=== PATIENT | male | born 1965 | race Caucasian/White ===

== ENCOUNTER 2023-03-18 06:32 | Emergency (ER) | payer OTHER, SELFPAY ==
[2023-03-18] VITALS (7 sets, daily range): BP systolic 100–119; BP diastolic 67–69; PULSE 73–98; RESP 18–24; TEMP 36.6; O2SAT 97–100
--- NOTE | ~2023-03-18 | XR_ITS ---
Portable chest x-ray Comparison: None Clinical History: Shortness of breath, CVA Findings: Lungs are clear, without focal consolidation or pleural effusion. Cardiomediastinal silho uette is unremarkable. Bones and soft tissues are unremarkable. Impression: Normal chest. Reviewed, dictated and finalized at [facility]. Impression: Normal chest.
--- NOTE | ~2023-03-18 | CT_ITS ---
Non-contrast Head CT History: Left hand numbness, vision changes Technique: Axial non-contrast imaging of the brain was performed. Dose reduction technique was used on this scan by utilizing automated exposure control and iterative reconstruction technique. The dose -length product (DLP) was 681.00 mGy-cm. Findings: There is no evidence of intracranial hemorrhage, mass lesion, or acute infarct. Brain par enchyma appears normal. The ventricles and subarachnoid spaces are normal in size. The calvarium ap pears normal. The visualized paranasal sinuses and mastoid air cells are clear. Impression: No significant abnormality seen. Reviewed, dictated and finalized at location . Impression: No significant abnormality seen.
--- NOTE | 2023-03-18 06:44 | ECG_ITS ---
Measurements Intervals [place] Rate: 78 P: 83 ND: 147 QRS: 85 QRSD: 96 T: 28 QT: 336 QTc: 385 Interpretive Statements SINUS RHYTHM POSSIBLE LEFT ATRIAL ENLARGEMENT BASELINE ARTIFACT- I, III BORDERLINE ECG NO PREVIOUS ECG AVAILABLE FOR COMPARISON Electronically Signed On 03-18-2023 7:36:24 CDT by Fercho Loza D.O.
--- NOTE | 2023-03-18 06:55 | PC.NURSE ---
Pt reports tingling to bilateral hands and feet for weeks . Last night he noticed his left hand went completely numb . States he came in this morning because his hand is still numb. When asked if he's had any SOB pt states I had COVID about a month ago and it still feels like I can't catch my breath . No s/s of respiratory distress. Skin warm and dry. Respiratory rate regular and non-labored. He denies chest pain. He denies any past medical history. Pt moves all extremities equally, ambulates with steady gait, speech is clear, pupils PEARRL.
[2023-03-18 06:58] LABS: Basophils Percent Auto 0.5 % (0.2-1.2); Eosinophils Percent Auto 0.6 % (0-4.4); Hematocrit 41.1 % (42.0-52.0); Hemoglobin 14.4 g/dL (14.0-18.0); Immature Granulocyte Absolute 0.02 K/mm3 (0.00-0.031); Immature Granulocyte Percent A 0.3 % (0-0.5); Lymphocytes Absolute Auto 0.79 K/mm3 (0.9-3.2); Lymphocytes Percent Auto 12.5 % (18.3-44.2); Mean Corpuscular Hemoglobin 32.7 pg (26-34); Mean Corpuscular Volume 93.2 fl (80-100); Mean Platelet Volume 9.7 fl (7.4-10.4); Monocytes Absolute Auto 0.8 K/mm3 (0.1-0.6); Monocytes Percent Auto 12.8 % (2.6-8.5); Neutrophils Absolute Auto 4.6 K/mm3 (1.3-6.7); Neutrophils Percent Auto 73.3 % (45.5-73.1); Platelet Count Result 216 k/mm3 (150-375); Red Blood Count 4.41 M/mm3 (4.6-6.20); Red Cell Distribution Width 13.1 % (11.5-14.5); White Blood Count 6.3 K/mm3 (4.5-10.0)
[2023-03-18 07:11] LABS: Alanine Aminotransferase 19 U/L (6-50); Albumin Level 4.3 g/dL (3.5-5.1); Alkaline Phosphatase 69 U/L (38-126); Anion Gap 7 mmol/L (8-16); Aspartate Amino Transferase 26 U/L (17-59); Bilirubin,Total 1.3 mg/dL (0.2-1.3); Blood Urea Nitrogen 13 mg/dL (9-20); Calcium 8.9 mg/dL (8.4-10.2); Carbon Dioxide 25 mmol/L (22-30); Chloride 105 mmol/L (98-107); Estimated CRCL calculation 86 ml/min; Estimated Glomerular Filt Rate > 60; Glucose 104 mg/dL (65-110); Potassium 3.9 mmol/L (3.4-5.0); Sodium 137 mmol/L (137-145)
[2023-03-18 07:21] LABS: Troponin I < 0.012 ng/mL (0.000-0.034)
--- NOTE | 2023-03-18 07:32 | PC.NURSE ---
Patient report received from VERNELL Alcazar. All questions answered and care of patient assumed.
[2023-03-18 07:44] LABS: INR 1.1; Prothrombin Time 14.2 Seconds (11.1-14.7)
[2023-03-18 07:45] LABS: Partial Thromboplastin Time 31.4 SECONDS (22.3-36.8)
--- NOTE | 2023-03-18 08:01 | ED.NEUROSD ---
HPI - Neuro Symptoms/Deficit General Chief Complaint: Suspected CVA Stated Complaint: left side numbness and sob Time Seen by Provider: 03/18/23 07:36 Source: patient and family Mode of arrival: ambulatory Limitations: no limitations History of Present Illness HPI Narrative: Patient is 57 years old white male, status post COVID infection February 26, 2023, presented to the ED with generalized tingling and numbness mainly of the tips of the fingers and toes for the last 7 days, work-up this morning with increased numbness and tingling of the left hand and left upper extremity. He denies any recent trauma or neck pain or fever or chills. Patient reports persistent coughing after the COVID infection, trouble sleeping, eyesight does not feel normal, was seen by university administrator yesterday with normal results, Decreased appetite, intermittent palpitation, trouble breathing mainly at night for the last 2 weeks since he having COVID, patient lives with his mother who been hospitalized lately and currently lives alone patient does not take medicine, does not smoke or drink or uses drugs. He denies any fever, chills, nausea, vomiting. Patient reports tremendous amount of stress lately. Patient did not sleep for the last 4 days. Related Data Allergies Allergy/AdvReac Type Severity Reaction Status Date / Time gluten Allergy Abdominal Verified 11/14/20 13:33 Pain tree nut Allergy Sweating Verified 11/14/20 13:33 Review of Systems Review of Systems: All systems reviewed & are unremarkable except as noted in HPI and below PMFSH Past Medical History Medical History Gluten enteropathy Screening for lipid disorders Screening for prostate cancer Tree nut allergy Family History Family History Other Hypertension Parkinson disease Social History Social History Smoking status: Never smoker Alcohol intake: never Exam Narrative: General appearance: Well-developed, well-nourished Skin: Normal color Head: Normocephalic, nontraumatic Eyes: Clear conjunctiva ENT: Oropharynx normal, ears normal, nose normal Neck: Supple, nontender Chest and respiratory: Airway patent, no respiratory distress, no accessory muscle use Heart: Regular rate/rhythm Abdomen: Soft, nontender, no organomegaly, quiet bowel sounds Vascular: Normal peripheral pulses, normal capillary refill. Musculoskeletal: Normal range of motion, nontender back Neurologic: Alert and oriented ?3, FOREST SCIENTIST is normal as tested, no gross motor deficit Course Course Emergency Course: Stable, improving Vital Signs Vital signs: Vital Signs Temperature 36.6 C 03/18/23 06:36 Pulse Rate 98 03/18/23 06:36 Respiratory Rate 18 03/18/23 06:36 Blood Pressure 119/67 03/18/23 06:36 Pulse Oximetry 99 03/18/23 06:36 Temperature 36.6 C 03/18/23 06:36 Pulse Rate 85 03/18/23 08:16 Respiratory Rate 22 H 03/18/23 08:16 Blood Pressure 100/69 03/18/23 08:15 Pulse Oximetry 100 03/18/23 08:16 MDM - Neuro Symptoms/Deficit MDM Narrative Medical decision making narrative: Patient presents with general tingling and numbness for over 1 week, woke up with more numbness and tingling left upper extremity, differential diagnosis as below. Work-up today included insignificant blood work-up, CT scan of the head, chest x-ray, Post COVID complication, anxiety related symptoms, cervical radiculopathy are my concern. Patient will be discharged to follow-up with neurologist. And to start on aspirin in the meantime. Differential Diagn
[2023-03-18] MEDS: LORazepam (*CRX) 0.5 MG TABLET 1 MG PO (08:20)
== END 2023-03-18 09:35 | disposition home or self-care (01) ==
PROVIDERS: Emergency Medicine; Emergency Provider Emergency Medicine; PCP Family Medicine
DX: R20.2 Paresthesia of skin (principal); R05.3 Chronic cough; U09.9 Post COVID-19 condition, unspecified; F43.9 Reaction to severe stress, unspecified; G47.00 Insomnia, unspecified; K90.0 Celiac disease; Z91.018 Allergy to other foods
CPT/HCPCS: 36415; 70450; 71045; 80053; 84484; 85025; 85610; 85730; 93005; 99284; A9270

== ENCOUNTER → 2023-08-15 15:14 | Outpatient (REF) | payer OTHER, SELFPAY | LOC: ANHLAB 15:14 | PROVIDERS: PCP Family Medicine; Visit Provider Plastic Surgery | DX: L82.1 Other seborrheic keratosis (principal) | CPT/HCPCS: 88305 ==

== ENCOUNTER 2025-05-29 08:21 | Emergency (ER) | payer OTHER, SELFPAY ==
[2025-05-29] VITALS (20 sets, daily range): BP systolic 109–145; BP diastolic 62–76; PULSE 74–83; RESP 12–25; TEMP 37.5; O2SAT 96–99
--- OUTSIDE RECORDS SUMMARY | 2025-05-29 08:31 | XMS_ITS | Referral Summary ---
Author Organization [facility] Address [address] [place] [address] Care Team Providers Care Milanese Knitting Machine Operator Name Role Phone Cresencio Mercado MD Primary Care Provider Allergies Active Allergy Reactions Criticality Noted Date Comments Cephalexin Stomach upset Low Tolerated amoxicillin Vance Syrup Diarrhea,Stomach upset Low 04/22/2021 Gluten Anaphylaxis High 12/01/2020 Milk Blisters,Diarrhea,St omac h upset High 04/22/2021 Nuts Vomiting Low 12/01/2020 Soy Diarrhea,Stomach upset Low 04/22/2021 Tree Nuts Palpitations Low 04/22/2021 Medications * This document contains information received from the source organization and may not represent a complete record from that organization. multivitamin capsule Take 1 capsule by mouth daily Active Active Problems Problem Noted Date Diagnosed Date Adult form of celiac disease 04/26/2016 Assessment & Plan (04/29/2022 3:25 PM CDT): Suspected - maybe sensitivity Immunizations Immunization Administration Dates Next Due Influenza, Trivalent, Cell C ulture-based MDCK, Preservative Free, Antibiotic Free, Intramuscular 07/31/2024 Influenza, Unspecified 07/31/2021,07/31/2020 Debbie (J&J) SARS-CoV-2 Vaccination 03/13/2021 Pfizer SARS-CoV-2 Monovalent Vaccination (12+ Yrs) PURPLE 10/20/2021 Social History Tobacco Use Types Packs/Day Years Used Date Smoking Tobacco: Never Smokeless Tobacco: Never Tobacco Cessation:Counseling Given: Not Answered PHQ-2 Answer Date Recorded PHQ-2 Total Score (If total score is 3 or more points, staff should administer the PHQ-9) 1 05/05/2023 Sex and Gender Information Value Date Recorded Sex Assigned at Not on file Legal Sex Male 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 Gender Identity Not on file Sexual Orientation Not on file 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, 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 Not on file Not on file Last Filed Vital Signs Vital Sign Reading Time Taken Comments Blood Pressure 115/68 01/30/2025 12:41 PM CDT Pulse 74 01/30/2025 12:41 PM CDT Temperature 36.8 C (98.3 F) 05/05/2023 2:34 PM CDT Respiratory Rate 16 09/04/2022 8:04 AM CDT Oxygen Saturation 98% 01/30/2025 12:41 PM CDT Inhaled Oxygen Concentration - - Weight 86.5 kg (190 lb 10 oz) 01/30/2025 12:41 P M CDT Height 195.7 cm (6' 5.04) 01/30/2025 12:41 PM C DT Body Mass Index 22.58 01/30/2025 12:41 PM CDT Plan of Treatment Not on file Procedures Procedure Name Priority Date/Time Associated Diagnosis Comments PSA SCREEN Routine 05/05/2023 3:28 PM CDT Preventative health care Screening for prostate cancer HEPATITIS C ANTIBODY Routine 04/22/2021 4:05 PM CDT Preventative health care HM COLONOSCOPY Routine 10/31/2014 from Last 3 Months or Most Recently Relevant to Health Maintenance Results * PSA screen (05/05/2023 3:28 PM CDT) PSA-Total 0.90 <=3.90 ng/mL [facility] Comment: Interpretive Data AGE SEX REFERENCE INTERVAL 0 minutes-150 years Female None 0 minutes-49 years Male None 50-59 years Male 0-3.90 60-69 years Male 0-5.40 70-79 years Male 0-6.20 80-150 years Male 0-6.20 The Geovani PSA Total assay procedure was used. Results from different manufacturers or methods may not be comparable. Serial testing should be performed using the same method. Current interpretive data last revised 22. Blood 05/05/2023 3:28 PM CDT 05/05/2023 6:42 PM CDT Cresencio Mercado MD LAB BLOOD ORDERABLES F inal Result Performing Organization Address [facility] Co de Phone Number [facility] [place] [address] * Hepatitis C antibody (04/22/2021 4:05 PM CDT) Hep C Ab Nonreactive Nonreactive [facility] Comment:Antibodies to HCV no t detected. Does NOT exclude the possibility of recent exposure to HCV. Blood specimen (specimen) 04/22/2021 4:05 PM CDT 04/22/2021 6:11 PM CDT Cresencio Mercado MD LAB MICROBIOLOGY - GEN ERAL ORDERABLES Edited Result - Final Performing Organization Address [facility] Co de Phone Number [facility] [place] [address] * HM COLONOSCOPY (10/31/2014) Colonoscopy Normal Historical Provider HEALTH MAINTENANCE Final Result from Last 3 Months or Most Recently Relevant to Health Maintenance Insurance [facility] [employer] EMPLOYEES EMPLOYEES Care Teams Milanese Knitting Machine Operator Relationship Specialty Start Date End Date Cresencio Mercado MD [address] [address] PCP - General Internal Medicine 04/22/21
--- OUTSIDE RECORDS SUMMARY | 2025-05-29 08:31 | XMS_ITS | Clinical Summary ---
Author Organization [facility] Address [address] [place] [address] Care Team Providers Care Beam Dyer Operator Name Role Phone Cresencio Mercado MD Primary Care Provider Allergies Active Allergy Reactions Criticality Noted Date Comments Cephalexin Stomach upset Low Tolerated amoxicillin [place] Syrup Diarrhea,Stomach upset Low 04/22/2021 Gluten Anaphylaxis [...] Antibiotic Free, Intramuscular 07/31/2024 Influenza, Unspecified 07/31/2021,07/31/2020 [email or web address] (J&J) SARS-CoV-2 Vaccination 03/13/2021 Pfizer SARS-CoV-2 Monovalent Vaccination (12+ Yrs) PURPLE 10/20/2021 Medical History Medical History Date Comments Sinus infection Shingles 2000 Covid-19 08/2022 Family History Medical History Relation Name Comments Thyroid disease Brother Parkinsonism Father Hypertension Maternal Grandfather Skin cancer Maternal Grandfather No Known Problems Maternal Grandmother Dementia Mother Hypertension Mother Valvular heart disease Mother Leukemia Mother's Brother No Known Problems Paternal Grandfather Alzheimer's disease Paternal Grandmother No Known Problems Sister Colon cancer Neg Hx Coronary artery disease Neg Hx Prostate cancer Neg Hx Relation Name Status Comments Brother Alive Father Maternal Grandfather Maternal Grandmother Mother Alive Mother's Brother Paternal Grandfather Paternal Grandmother Sister Alive Social History Tobacco Use Types Packs/Day Years Used Date Smoking Tobacco: Never Smokeless Tobacco: Never Tobacco Cessation:Counseling Given: Not Answered PHQ-2 Answer Date Recorded PHQ-2 Total Score (If total score is 3 or more points, staff should administer the PHQ-9) 1 05/05/2023 Sex and Gender Information Value Date Recorded Sex Assigned at Not on file Legal Sex Male 6: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 Gender Identity Not on file Sexual Orientation Not on file 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, 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 Not on file Not on file Obstetrics History Last Filed Vital Signs Vital Sign Reading [...] 01/30/2025 12:41 PM CDT Plan of Treatment Health Maintenance Due Date Last Done Comments DTaP/Tdap/Td Vaccine (1 - Tdap) 12/28/1974 Hepatitis B Screening 12/28/1981 Zoster Vaccine (1 of 2) 12/28/2013 Depression Screening 05/05/2024 05/05/2023, 04/29/2022, 04/22/2021 Regular Well Visit/Exam 18-64 05/05/2024 05/05/2023, 05/05/2023, 04/29/2022, Additional history exists Covid-19 Vaccine ( season) 2024 10/20/2021, 03/13/2021 Colon Cancer Screening-Colonoscopy 10/31/2024 10/31/2014 Prostate Cancer Screening-PSA 05/05/2025 05/05/2023, 04/22/2021 Influenza Vaccine (#1) 2025 , 07/31/2021, 07/31/2020 Hepatitis C Screening Completed 04/22/2021 Pneumococcal vaccine <65 Aged Out No longer eligible based on patient's age to complete this topic Procedures Procedure Name Priority Date/Time Associated Diagnosis Comments PSA SCREEN Routine 05/05/2023 3:28 PM CDT Preventative health care Screening for prostate cancer HEPATITIS C ANTIBODY Routine 04/22/2021 4:05 PM CDT Preventative health care HM COLONOSCOPY Routine 10/31/2014 from Last 3 Months or Most Recently Relevant to Health Maintenance Results * PSA screen (05/05/2023 3:28 PM CDT) PSA-Total 0.90 <=3.90 ng/mL [facility] [place] Comment: Interpretive Data AGE SEX REFERENCE INTERVAL [...] 3:28 PM CDT 05/05/2023 6:42 PM CDT us Cresencio Mercado MD LAB BLOOD ORDERABLES F inal Result [facility] [place] [facility] Department [place] [address] * Hepatitis C antibody (04/22/2021 4:05 PM CDT) Hep C Ab Nonreactive Nonreactive [facility] Comment:Antibodies to HCV no t detected. Does NOT exclude the possibility of recent exposure to HCV. Blood specimen (specimen) 04/22/2021 4:05 PM CDT 04/22/2021 6:11 PM CDT Cresencio Mercado MD LAB MICROBIOLOGY - GEN ERAL ORDERABLES Edited Result - Final ERIKAMARZENA GEOVANNA [facility] [place] [address] * COLONOSCOPY (10/31/2014) Pathologist [facility] Colonoscopy Normal Historical Provider HEALTH MAINTENANCE Final Result from Last 3 Months or Most Recently Relevant to Health Maintenance Insurance [facility] [employer] Member Subscriber Plan / Payer (Ef fective 2021-Present) Name:Sarkis Fernández Relation to Subscriber:Self Name:Sarkis Fernández Payer ID:[id number] (NAIC) Type:[facility] HMO/PPO Address: [place] [id number] Care Teams Beam Dyer Operator Relationship Specialty Start Date End Date Cresencio Mercado MD [address] [address] PCP - General Internal Medicine 04/22/21
--- OUTSIDE RECORDS SUMMARY | 2025-05-29 08:31 | XMS_ITS | Clinical Summary ---
Author Organization [facility] Address Replaced by [facility] [place] [address] Care Team Providers Care Critical Power Install Technician Name Role Phone Ron Pinto MD Primary Care Provider [phone] Allergies Active Allergy Reactions Criticality Noted Date Comments Gluten Meal Vomiting 12/01/2020 Nuts Vomiting 12/01/2020 Medications tamsulosin 0.4 MG Cap Take 1 capsule (0.4 mg total) by mouth daily. Take daily until stone passes 3 capsule 1 Active HYDROcodone-acetami nophen 5-325 MG tabletIndications:A cute Pain < 7 Day Supply Take 1-2 tablets by mouth every 6 (six) hours as needed. Indications: Acute Pain < 7 Day Supply 10 tablet 1 Active ondansetron 4 MG disintegrating tablet Take 1 tablet (4 mg total) by mouth every 8 (eight) hours as needed for Nausea. 10 tablet 1 Active Social History Tobacco Use Types Packs/Day Years Used Date Smoking Tobacco: Never Smokeless Tobacco: Never Alcohol Use Standard Drinks/Week Comments Never 0 (1 standard drink = 0.6 oz pur e alcohol) AUDIT-C Answer Date Recorded Q1: How often do you have a drink containing alc ohol? Never 12/01/2020 Average Number of Drinks Not on file 021 Frequency of Binge Drinking Not on file 10/2020 Sex and Gender Information Value Date Recorded Sex Assigned at Not on file Legal Sex Male 6:47 PM CDT Gender Identity Not on file Sexual Orientation Not on file Last Filed Vital Signs Vital Sign Reading Time Taken Comments Blood Pressure 107/58 12/02/2020 4:00 AM STRUCTURAL RIGGER Pulse 61 12/02/2020 4:00 AM STRUCTURAL RIGGER Temperature 36.7 C (98.1 F) 12/01/2020 11:12 PM STRUCTURAL RIGGER Respiratory Rate 16 12/02/2020 4:00 AM STRUCTURAL RIGGER Oxygen Saturation 97% 12/02/2020 4:00 AM STRUCTURAL RIGGER Inhaled Oxygen Concentration - - Weight 77.1 kg (170 lb) 12/01/2020 11:12 PM STRUCTURAL RIGGER Height 195.6 cm (6' 5) 12/01/2020 11:12 PM STRUCTURAL RIGGER Body Mass Index 20.16 12/01/2020 11:12 PM STRUCTURAL RIGGER Plan of Treatment Health Maintenance Due Date Last Done Comments Colorectal Cancer Screening Colonoscopy (10 Years) 1963 Annual Physical 12/28/1966 Hepatitis C 12/28/1981 DTaP, Tdap and Td Vaccines ( 1 - Tdap) 12/28/1982 Pneumococcal Vaccine: 50+ Ye ars (1 of 1 - PCV) 12/28/2013 Zoster Vaccines (1 of 2) 12/28/2013 COVID-19 Vaccine (1 - 2023-2 5 season) 2024 RSV Immunization or 60+ Years (1 - 1-dose 75+ series) 12/28/2038 Meningococcal B Vaccine Aged Out No l onger eligible based on patient's age to complete this topic Meningococcal Vaccine Aged Out No jeffrey jose alejandro eligible based on patient's age to complete this topic RSV Immunizations Under 20 Months Aged Out No longer eligible based on patient's age to complete this topic Insurance [facility] Care Teams Critical Power Install Technician Relationship Specialty Start Date End Date Ron Pinto MD [address] [address] PCP - General FAMILY PRACTICE 12/02/20
[2025-05-29 08:46] LABS: Hematocrit 41.7 % (42.0-52.0); Hemoglobin 14.7 g/dL (14.0-18.0); Immature Granulocyte Percent A 0.5 % (0-0.5); Lymphocytes Absolute Auto 0.96 K/mm3 (0.9-3.2); Mean Corpuscular HGB Conc 35.3 g/dl (32-36); Mean Corpuscular Hemoglobin 32.0 pg (26-34); Mean Corpuscular Volume 90.7 fl (80-100); Nucleated Red Blood Cells Absolute Auto 0.000 K/mm3 (0.0-0.012); Nucleated Red Blood Cells Perc 0.0 % (0.0-0.2); Platelet Count Result 164 k/mm3 (150-375); Red Blood Count 4.60 M/mm3 (4.6-6.20); White Blood Count 16.5 K/mm3 (4.5-10.0)
[2025-05-29 09:04] LABS: Alanine Aminotransferase 39 U/L (6-50); Albumin Level 4.4 g/dL (3.5-5.1); Alkaline Phosphatase 95 U/L (38-126); Anion Gap 11 mmol/L (4-12); Aspartate Amino Transferase 65 U/L (17-59); Bilirubin,Total 1.5 mg/dL (0.2-1.3); Blood Urea Nitrogen 16 mg/dL (9-20); Calcium 8.7 mg/dL (8.4-10.2); Carbon Dioxide 23 mmol/L (22-30); Chloride 93 mmol/L (98-107); Estimated CRCL calculation 73 ml/min; Estimated Glomerular Filt Rate > 60; Glucose 131 mg/dL (65-110); Lipase 52 U/L (23-300); Potassium 4.1 mmol/L (3.4-5.0); Sodium 127 mmol/L (137-145); Total Protein 8.2 g/dL (6.3-8.2)
[2025-05-29] MEDS: ONDANSETRON INJ 4 MG/2 ML VIAL IV PUSH (09:05)
[2025-05-29] MEDS: SODIUM CHLORIDE 0.9% IV 1,000 ML 999 ML IV CONT (09:05)
[2025-05-29 10:56] LABS: Add Urine Microscopic? YES; Appearance Urine Clear (Clear); Glucose Urine UA Negative (Negative); Leukocyte Esterase Ur Negative LEU/UL (Negative); Nitrate Urine Negative (Negative); Non Pathogenic Casts 0-2; Specific Grav Ur 1.010 (1.001-1.035)
--- NOTE | 2025-05-29 12:38 | ED_ITS ---
HPI - General Adult General Chief complaint: Nausea/Vomiting/Diarrhea Stated complaint: vomiting Time Seen by Provider: 05/29/25 08:26 History of Present Illness HPI narrative: Patient is a 59-year-old male who presents ER with emesis. Ongoing for 3 days. First event on 05/27/2025. He had 10 episodes of emesis that day. He is coming home from work and felt chilled even though was hot outside. He has continued to feel unwell. He then had 9 episodes of emesis this morning. No abdominal pain. No significant diarrhea. Denies chest pain/pressure improved no alleviating factors. No blood in emesis. Related Data Home Medications ?Medication ?Instructions ?Recorded ?Confirmed ?Last Taken ?Type multivitamin 1 tablet PO DAILY 08/09/23 01/18/25 Unknown History Allergies Allergy/AdvReac Type Severity Reaction Status Date / Time gluten Allergy Abdominal Verified 05/29/25 08:28 Pain tree nut Allergy Sweating Verified 05/29/25 08:28 Review of Systems 2 Review of Systems: All systems reviewed & are unremarkable except as noted in HPI and below Constitutional: Constitutional: Reports no additional constitutional complaints Cardiovascular: Cardiovascular: Reports no additional cardiovascular complaints Respiratory: Respiratory: Reports no additional respiratory complaints Gastrointestinal: Gastrointestinal: Reports no additional gastrointestinal complaints Neurologic: Reports system reviewed and no additional complaints, except as documented PMFSH Past Medical History Medical History Folliculitis Screening for prostate cancer Screening for lipid disorders Tree nut allergy Gluten enteropathy Family History Family History Other Hypertension Parkinson disease Social History Social History Smoking status: Never smoker Alcohol intake: never Lack of Transportation: No Lack of Food: Never True Current Housing: I Have Housing Concerned About Future Housing: No Difficulty Paying Gas/Electric Bills: No Difficulty Paying for Meds: No Currently Unemployed: No Education: High School Diploma/GED Difficulty w/ Childcare or Family Care: No Exam 2 Narrative: GENERAL: Well-appearing, well-nourished, and in no acute distress. HEAD: Normocephalic, atraumatic. ENT: Mucous membranes moist. CHEST: Clear to auscultation. No respiratory distress. HEART: Regular rate and rhythm. Normal peripheral pulses. ABDOMEN: Soft, nontender, nondistended. EXTREMITIES: Normal range of motion. No edema. SKIN: Warm, dry, no rash. NEURO: Alert and oriented x3. PSYCH: Normal mood and affect. Course Course Emergency Course: Patient hydrated. Given anti medics. He is able to drink water as well as eat applesauce and Jell-O. Appropriate for discharge home with supportive care. Abdomen remains soft nontender. CT not felt to be necessary at this time. Vital Signs Vital signs: Vital Signs Temperature 99.5 F 05/29/25 08:26 Pulse Rate 82 05/29/25 08:26 Respiratory Rate 20 05/29/25 08:26 Blood Pressure 136/76 05/29/25 08:26 Oxygen Delivery Room Air 05/29/25 08:26 Temperature 99.5 F 05/29/25 08:26 Pulse Rate 77 05/29/25 10:45 Respiratory Rate 20 05/29/25 10:45 Blood Pressure 115/68 05/29/25 09:01 Pulse Oximetry 98 05/29/25 10:45 Oxygen Delivery Room Air 05/29/25 08:26 Medical Decision Making Vital Signs Vital Signs: Vital Signs Temperature 99.5 F 05/29/25 08:26 Pulse Rate 82 05/29/25 08:26 Respiratory Rate 20 05/29/25 08:26 Blood Pressure 136/76 05/29/25 08:26 Oxygen Delivery Room Air 05/29/25 08:26 Temperature 99.5 F 05/29/25 08:26 Pulse Rate 77 05/29/25 10:45 Respiratory Rate 20 05/29/25 10:45 Blood Pressure 115/68 05/29/25 09:01 Pulse Oximetry 98 05/29/25 10:45 Oxygen Delivery Room Air 05/29/25 08:26 Lab Data 05/29/25 08:35 05/29/25 08:35 Labs: Lab Results 05/29/25 05/29/25 Range/Units 08:35 10:40 WBC 16.5 H (4.5-10.0) K/mm3 RBC 4.60 (4.6-6.20) M/mm3 Hgb 14.7 (14.0-18.0) g/dL Hct 41.7 L (42.0-52.0) % MCV 90.7 (80-100) fl MCH 32.0 (26-34) pg MCHC 35.3 (32-36) g/dl RDW 12.5 (11.5-14.5) % Plt Count 164 (150-375) k/mm3 MPV 9.8 (7.4-10.4) fl Immature Gran % (Auto) 0.5 (0-0.5) % Neut % (Auto) 82.5 H (45.5-73.1) % Lymph % (Auto) 5.8 L (18.3-44.2) % [place] % (Auto) 11.0 H (2.6-8.5) % Eos % (Auto) 0.0 (0-4.4) % Baso % (Auto) 0.2 (0.2-1.2) % Lymph # (Auto) 0.96 (0.9-3.2) K/mm3 [place] # (Auto) 1.8 H (0.1-0.6) K/mm3 Eos # (Auto) 0.0 (0-0.3) K/mm3 Baso # (Auto) 0.0 (0.0-0.1) K/mm3 Abs Immat Gran (auto) 0.08 H (0.00-0.031) K/mm3 Absolute Neuts (auto) 13.6 H (1.3-6.7) K/mm3 Absolute Nucleated RBC 0.000 (0.0-0.012) K/mm3 Nucleated RBC % 0.0 (0.0-0.2) % Sodium 127 L (137-145) mmol/L Potassium 4.1 (3.4-5.0) mmol/L Chloride 93 L (98-107) mmol/L Carbon Dioxide 23 (22-30) mmol/L Anion Gap 11 (4-12) mmol/L BUN 16 (9-20) mg/dL Creatinine 1.16 (0.7-1.3) mg/dL Estim Creat Clear Calc 73 ml/min Estimated GFR > 60 (59 - ) Glucose 131 H (65-110) mg/dL Calcium 8.7 (8.4-10.2) mg/dL Total Bilirubin 1.5 H (0.2-1.3) mg/dL AST 65 H (17-59) U/L ALT 39 (6-50) U/L Alkaline Phosphatase 95 (38-126) U/L Total Protein 8.2 (6.3-8.2) g/dL Albumin 4.4 (3.5-5.1) g/dL Lipase 52 (23-300) U/L Urine Color Yellow (Yellow) Urine Appearance Clear (Clear) Urine pH 5.5 (5.0-9.0) Ur Specific [place] 1.010 (1.001-1.035) Urine Protein Trace (Negative) mg/dL Urine Glucose (UA) Negative (Negative) mg/dL Urine Ketones Trace H (Negative) mg/dL Ur Blood (Man) Trace (Negative) Urine Nitrate Negative (Negative) Urine Bilirubin Negative (Negative) Urine Urobilinogen 1.0 (<2.0) mg/dL Leukocyte Esterase Rfl Negative (Negative) JESSICA/UL Urine RBC 0-2 (0-2) /hpf Urine WBC 0-5 (0-3) /hpf Ur Squamous Epith Cells None seen (Few) /hpf Urine Bacteria None seen /hpf Urine Casts 0-2 Discharge Plan Discharge Clinical Impression: Gastroenteritis Patient Disposition: Home Condition: Stable Instructions: Gastroenteritis (ED) Additional Instructions: Return to the emergency department if you develop severe abdominal pain, severe nausea and vomiting to the point where you are unable to keep down fluids, if you develop chest pain or difficulty breathing, blood in your stool, dizziness or fainting, or if you develop any other new or concerning symptoms as these could be signs of more serious medical illness. Try to stay well hydrated. Patient Language: [place] Prescriptions: New ondansetron 4 mg tablet,disintegrating 4 mg PO Q6H PRN (Reason: nausea and vomiting) Qty: 10 0RF No Action multivitamin Tablet 1 tablet PO DAILY epinephrine 0.3 mg/0.3 mL auto-injector 0.3 mg IM ONCE Qty: 2 0RF Rx Instructions: as a single dose; may repeat once Follow-up/Referrals: Ron Pinto MD [Primary Care Provider] - 1 Week
== END 2025-05-29 13:11 | disposition home or self-care (01) ==
PROVIDERS: Emergency Provider Emergency Medicine; PCP Family Medicine
DX: K52.9 Noninfective gastroenteritis and colitis, unspecified (principal); Z91.018 Allergy to other foods
CPT/HCPCS: 36415; 80053; 81001; 83690; 85025; 96361; 96374; 99284; J2405; J7030